=== PATIENT | male | born 1935 | race Caucasian/White ===

== ENCOUNTER 2016-11-14 13:46 | Outpatient (CLI) | payer MEDICARE, BC ==
[2016-11-14 14:50] LABS: Hematocrit 35.8 % (42.0-52.0); Mean Platelet Volume 6.5 fL (7.4-10.4); Red Blood Cell (RBC) Count 3.74 mill/uL (4.70-6.10); White Blood Cell (WBC) Count 5.9 thou/uL (4.8-10.8)
[2016-11-14 14:54] LABS: Bilirubin Negative (Negative); Blood, Urine Negative (Negative); Glucose, Urine (Dipstick) Negative (Negative); Ketone, Urine Negative (Negative); Nitrite Negative (Negative); Protein, Urine (Dipstick) Negative (Neg-Trace); Urobilinogen 0.2 mg/dL (0.2-1.0)
[2016-11-14 14:55] LABS: Bacteria/HPF None Seen HPF (None Seen); Hyaline Casts/LPF 0-3 HYALINE CAST LPF (0-3 Hyaline); Prothrombin Time 13.8 SEC (12.0-14.7); RBC/HPF 0-3 HPF (0-3); Squamous Epithelial None Seen HPF (0-3); WBC/HPF None Seen HPF (0-3)
[2016-11-14 15:12] LABS: Anion Gap 11 mmol/L (10-20); BUN (Urea Nitrogen) 24 mg/dL (8.4-25.7); Calc. Creatinine Clearance 0 mL/min (70-130); Calcium 9.4 mg/dL (7.8-10.44); Carbon Dioxide 24 mmol/L (23-31); Chloride 109 mmol/L (98-107); Estimated GFR-MDRD 58
--- NOTE | 2016-11-16 17:45 | EKG ---
Test Reason : Blood Pressure : / mmHG Vent. Rate : 057 BPM Atrial Rate : 057 BPM P-R Int : 164 ms QRS Dur : 088 ms QT Int : 432 ms P-R-T Axes : -04 -36 -07 degrees QTc Int : 420 ms Sinus bradycardia Left axis deviation Minimal voltage criteria for LVH, may be normal variant Abnormal ECG When compared with ECG of 08-SEP-2008 13:03, No significant change was found Confirmed by SONIA VALDES ([id number]) on 11/16/2016 5:45:27 PM Referred By: ISIDRO Confirmed By:SONIA VALDES
== END 2016-11-14 13:47 | disposition home or self-care (01) ==
LOC: LABBT 13:46
PROVIDERS: ATTEND Orthopaedic Surgery
DX: Z01.818 Encounter for other preprocedural examination (principal); M17.12 Unilateral primary osteoarthritis, left knee
CPT/HCPCS: 80048; 81001; 85027; 85610; 87081; 93005; 93010

== ENCOUNTER 2016-11-19 11:30 | Inpatient (IN) | payer MEDICARE, BC ==
[2016-11-14 13:55] VITALS: BMI 25.7
[2016-11-24] MEDS ORDERED: Fentanyl 100 MCG/2 ML VIAL ONE ×3 (05:54→09:55)
[2016-11-24] MEDS ORDERED: Tranexamic Acid 1,000 MG/100 ML BAG ONE ×2 (05:58→09:31)
[2016-11-24] MEDS ORDERED: Midazolam HCl 2 mg/2 ml Vial ONE (06:13)
[2016-11-24] MEDS ORDERED: Vancomycin HCl 1.5 GM in Sodium Chloride 0.9% 250 ML 300 ML IVPB SCH ×2 (06:15→18:00)
[2016-11-24] MEDS ORDERED: Ropivacaine 0.2% HCl/PF 20 ML ONE (06:31)
[2016-11-24] MEDS ORDERED: Bupivacaine PF 0.5% 30 ML VIAL ONE (06:53)
[2016-11-24] MEDS ORDERED: Bupivacaine 0.25% HCL 30 ML VIAL ONE (06:53)
[2016-11-24] MEDS ORDERED: Promethazine HCl 25 MG/ML VIAL IM PRN ×3 (07:03→09:24)
[2016-11-24] MEDS ORDERED: Ropivacaine 0.2% 550 ML 550 ML NERVE BLCK SCH (07:03)
[2016-11-24] MEDS ORDERED: Ondansetron HCl/PF 4 MG/2 ML Vial IVP PRN ×3 (07:03→09:24)
[2016-11-24] MEDS ORDERED: traMADol HCl 50 MG TAB PO PRN ×3 (07:03→09:24)
[2016-11-24] MEDS ORDERED: Zolpidem Tartrate 5 MG TAB PO PRN ×2 (07:03→09:24)
[2016-11-24] MEDS ORDERED: Ropivacaine HCl/PF 250 ML in Premix Bag 1 BAG NERVE BLCK SCH (07:03)
[2016-11-24] MEDS ORDERED: Fentanyl 100 MCG/2 ML VIAL IV PRN (07:04)
[2016-11-24] MEDS ORDERED: Dexamethasone 20 MG/5 ML VIAL ONE (07:39)
[2016-11-24] MEDS ORDERED: Lidocaine 1% PF 5 ML VIAL ONE (07:39)
[2016-11-24] MEDS ORDERED: Propofol 200 MG/20 ML VIAL ONE (07:39)
[2016-11-24] MEDS ORDERED: ePHEDrine/0.9% NaCl/PF SYRINGE 50 mg/10 ml ONE (07:39)
[2016-11-24] MEDS ORDERED: Ondansetron HCl/PF 4 MG/2 ML Vial ONE (07:39)
[2016-11-24] MEDS ORDERED: Promethazine HCl 25 MG/ML VIAL SLOW IVP PRN (08:03)
[2016-11-24] MEDS ORDERED: diphenhydrAMINE HCl 25 MG CAP PO PRN (09:24)
[2016-11-24] MEDS ORDERED: Acetaminophen 325 MG TAB PO PRN (09:24)
[2016-11-24] MEDS ORDERED: Tranexamic Acid 1,000 MG in Sodium Chloride 0.9% 100 ML IVPB SCH (09:30)
--- NOTE | 2016-11-24 11:18 | OP ---
DESCRIPTION OF THE PROCEDURE: 11/24/2016 PREOPERATIVE DIAGNOSIS: Left knee osteoarthrosis. POSTOPERATIVE DIAGNOSIS: Left knee osteoarthrosis. PROCEDURE PERFORMED: Left total knee replacement using [employer] pinless navigation. SURGEON: Blair Schmitz M.D. CATALOG LIBRARY ASSISTANT: Peter Fink PA-C. BLOOD LOSS: Minimal. COMPLICATIONS: None. ANESTHESIA: The patient had a preoperative block as well as a general anesthetic. DISPOSITION: He did go to the recovery room in stable condition. IMPLANTS: To the left knee is [employer] total knee system, femur size 6 cruciate retaining. Tibial baseplate size 6 universal tibia. We used a 6 x 9 mm CSX3 tibial bearing and an asymmetric 35 x 10 X3 patella. CONDITION: He did go to the recovery room in stable condition. INDICATIONS: An 81-year-old male who has failed nonoperative treatment for knee arthritis and at is time opted to have surgery. PROCEDURE IN DETAIL: After all appropriate consent forms were explained and signed, the patient was taken back to the Operating Room and at this time was given general anesthetic. Once the level of anesthesia was appropriate, a well-padded tourniquet was placed on the left leg and the leg was then prepped and draped in standard surgical fashion. The limb was exsanguinated and tourniquet taken u p to 300 mmHg. Midline incision was made with a 10 blade down through the skin and subcutaneous tis imani. Bovie electrocautery was used to coagulate any brisk venous bleeding. A new blade was used to make a medial parapatellar arthrotomy. Small subperiosteal release was performed medially and exce ss fat pad was removed. The knee was flexed up to gain access to the femur. The femur was navigate d and distal femoral resection was made. Epicondylar access was used to align our sizing jig and is was pinned in place. We sized our femur to be a 6, 4:1 cutting block was applied and pinned. An terior and posterior chamfer cuts were then made. We navigated out our proximal tibia and made our proximal tibial resection. Spreaders were used to remove any posterior osteophytes off the back of the femur as well as remaining meniscal tissue. A long alignment farzaneh was then used to achieve corre ct rotation of our tibial baseplate and a size 6 was chosen. This was pinned in place. We trialed the polyethylene and a 6 x 9 mm CSX3 tibial bearing polyethylene gave us full extension and good sta bility throughout range of motion. Two towel clips and a saw were used to cut our patella. Three l ug nuts were drilled and left patella was trialed which sat nicely in the trochlear groove. We then drilled our femur and punched our tibia. All components were removed. The knee was thoroughly irr igated and dried. Cement was mixed into the cement gun on the back table. Components were then ana yann. The knee was held out in full extension until the cement had dried. All excess bone cement wa s removed. Multiple #2 Vicryl stitches as well as a Quill was used to close our extensor mechanism . 0 Quill followed by a running Monoderm was then used to close the skin. Surgicel glue was then u sed on the skin. Once this had dried, soft tissue dressing was applied to the limb, tourniquet was l et down, and the toes pinked up nicely. The patient was then awakened and taken to the Recovery Lin in stable condition. All counts were correct at the end of the case. The patient did receive pre operative IV antibiotics. The patient was injected with Exparel for postoperative pain relief.
[2016-11-24] MEDS: Ketorolac Tromethamine 30 MG/ML VIAL IVP SCH ×2 (14:11→21:15)
--- NOTE | 2016-11-24 15:05 | PDOC.PN ---
- Subjective Encounter Start Date: 11/24/16 Encounter Start Time: 15:00 Subjective: Consult for general med mgmt s/p L TKA due to severe osteoarthrosis. -: Hx of HTN, HLD. Reviewed all relevant past medical records, current hx and -: radiographs and labs. No new complaints currently. - Objective MAR Reviewed: Yes Vital Signs & Weight: Vital Signs (12 hours) Temp Pulse Resp BP Pulse Ox 11/24/16 10:45 97.8 F 69 18 125/73 94 L Weight Weight 190 lb Additional Labs: Laboratory Tests 11/14/16 11/14/16 14:18 14:18 WBC 5.9 Hgb 12.2 L Hct 35.8 L MCV 95.7 H Plt Count 205 Sodium 140 Potassium 4.2 Chloride 109 H Carbon Dioxide 24 Anion Gap 11 BUN 24 Creatinine 1.20 Estimated GFR (MDRD) 58 Glucose 101 EKG Reviewed by me: Yes (11/14/16 - sinus bradycardia in 50's, LAD, no acute changes) Phys Exam - Physical Examination Constitutional: NAD HEENT: PERRLA, oral pharynx no lesions Neck: no JVD, supple Respiratory: no wheezing, clear to auscultation bilateral Cardiovascular: RRR Gastrointestinal: soft, non-tender, no distention, positive bowel sounds L knee with surgical dressings in place, N/V intact distally + edema Musculoskeletal: pulses present Psychiatric: A&O x 3 Skin: normal turgor, cap refill <2 seconds Dx/Plan (1) HTN (hypertension) Code(s): I10 - ESSENTIAL (PRIMARY) HYPERTENSION Status: Chronic Qualifiers: Hypertension type: essential hypertension Qualified Code(s): I10 - Essential (primary) hypertension Comment: Stable overall resume home Lisinopril and Norvasc, serial BP monitoring , prn Hydralazine and Clonidine (2) HLD (hyperlipidemia) Code(s): E78.5 - HYPERLIPIDEMIA, UNSPECIFIED Status: Chronic Comment: Resume home regimen after 24h (3) Osteoarthrosis Code(s): M19.90 - UNSPECIFIED OSTEOARTHRITIS, UNSPECIFIED SITE Status: Chronic Qualifiers: Osteoarthritis location: knee Laterality: left Comment: s/p L TKA 11/24/16, pain control, ASA 325mg BID - Plan plan discussed w/ family, francis catheter, PT/OT, clinical social worker, incentive spirometry, out of bed/ambulate, DVT proph w/SCDs Continue ASA 325mg BID -: Pain control per protocol -: Continue Amlodipine and Lisinopril -: Mobilization per [facility] protocol -: AM lab: CBC * Thank you for the consult, will continue to follow with primary team
[2016-11-24] MEDS ORDERED: cloNIDine HCl 0.1 MG TAB PO PRN (15:15)
[2016-11-24] MEDS: Sodium Chloride 0.9% 1,000 ML IV SCH ×2 (16:03→21:16)
[2016-11-24] MEDS: HYDROcodone/Acetaminophen 10/325 mg Tablet PO PRN ×2 (16:10→20:09)
[2016-11-24] MEDS: Senokot S 8.6-50 MG TAB PO SCH (20:03)
[2016-11-24] MEDS: rOPINIRole HCl 2 MG TAB PO SCH (20:03)
[2016-11-24] MEDS: Simvastatin 20 MG TAB PO SCH (20:03)
[2016-11-24] MEDS: Aspirin 325 MG TAB PO SCH (20:03)
[2016-11-24] MEDS: Ferrous Gluconate 324 MG TAB PO SCH (20:03)
[2016-11-25] MEDS: Sodium Chloride 0.9% 1,000 ML IV SCH ×2 (06:12→16:03)
[2016-11-25] MEDS: Ketorolac Tromethamine 30 MG/ML VIAL IVP SCH ×3 (06:14→22:07)
[2016-11-25] MEDS: HYDROcodone/Acetaminophen 10/325 mg Tablet PO PRN ×4 (06:16→18:57)
[2016-11-25 06:25] LABS: Hematocrit 31.2 % (42.0-52.0); Mean Platelet Volume 6.4 fL (7.4-10.4); Red Blood Cell (RBC) Count 3.25 mill/uL (4.70-6.10); White Blood Cell (WBC) Count 9.6 thou/uL (4.8-10.8)
[2016-11-25] MEDS: rOPINIRole HCl 2 MG TAB PO SCH ×2 (08:12→20:06)
[2016-11-25] MEDS: Lisinopril 20 MG TAB PO SCH (08:12)
[2016-11-25] MEDS: Senokot S 8.6-50 MG TAB PO SCH ×2 (08:13→20:07)
[2016-11-25] MEDS: Ferrous Gluconate 324 MG TAB PO SCH ×2 (08:13→20:07)
[2016-11-25] MEDS: Aspirin 325 MG TAB PO SCH ×2 (08:14→20:07)
[2016-11-25] MEDS: Multivitamin W/ Minerals 1 TAB PO SCH (08:14)
--- NOTE | 2016-11-25 17:04 | PDOC.PN ---
- Subjective Encounter Start Date: 11/25/16 Encounter Start Time: 16:45 Subjective: f/u s/p L TKA POD #1. Feels ok overall and minimal pain. Some trouble -: sleeping. Good appetite, no SOB or fever. - Objective MAR Reviewed: Yes Vital Signs & Weight: Vital Signs (12 hours) Temp Pulse Resp BP BP Pulse Ox 11/25/16 15:45 97.6 F 64 16 152/74 H 92 L 11/25/16 12:20 98.5 F 64 16 153/78 H 92 L 11/25/16 12:00 95 11/25/16 08:13 94 145/82 H 11/25/16 08:12 145/82 H 11/25/16 08:00 98.5 F 94 18 95 Weight Admit Weight 190 lb Weight 190 lb I&O: 11/24/16 11/25/16 11/26/16 06:59 06:59 06:59 Intake Total 200 Balance 200 Result Diagrams: 11/25/16 05:23 Phys Exam - Physical Examination Constitutional: NAD HEENT: PERRLA Neck: no JVD, supple Respiratory: no wheezing, clear to auscultation bilateral Cardiovascular: RRR Gastrointestinal: soft, non-tender, no distention, positive bowel sounds L knee with SONY wrap surgical dressing and brace in place Musculoskeletal: pulses present, edema present Neurological: normal sensation, moves all 4 limbs Psychiatric: A&O x 3 Skin: normal turgor, cap refill <2 seconds Dx/Plan (1) HTN (hypertension) Code(s): I10 - ESSENTIAL (PRIMARY) HYPERTENSION Status: Chronic Qualifiers: Hypertension type: essential hypertension Qualified Code(s): I10 - Essential (primary) hypertension Comment: Stable overall resume home Lisinopril and Norvasc, serial BP monitoring , prn Hydralazine and Clonidine (2) HLD (hyperlipidemia) Code(s): E78.5 - HYPERLIPIDEMIA, UNSPECIFIED Status: Chronic Comment: Resume home regimen after 24h (3) Osteoarthrosis Code(s): M19.90 - UNSPECIFIED OSTEOARTHRITIS, UNSPECIFIED SITE Status: Chronic Qualifiers: Osteoarthritis location: knee Laterality: left Comment: s/p L TKA 11/24/16, pain control, ASA 325mg BID (4) Status post total knee replacement, left Code(s): Z96.652 - PRESENCE OF LEFT ARTIFICIAL KNEE JOINT Status: Acute Comment: POD #1, pain control, ASA 325mg BID, ROM exercises, PT/OT - Plan plan discussed w/ family, PT/OT, social services analyst, out of bed/ambulate, DVT proph w/SCDs Stable overall -: Continue ASA 325mg BID -: Add Restoril 30mg HS -: Hold Ambien -: Continue Lisinopril and Norvasc * OOB/ambulate with PT
[2016-11-25] MEDS ORDERED: Temazepam 15 MG CAP PO PRN (17:08)
[2016-11-25] MEDS: Simvastatin 20 MG TAB PO SCH (20:07)
[2016-11-26] MEDS: Sodium Chloride 0.9% 1,000 ML IV SCH (00:49)
[2016-11-26] MEDS: HYDROcodone/Acetaminophen 10/325 mg Tablet PO PRN ×2 (03:29→12:37)
[2016-11-26 05:46] LABS: Hematocrit 32.3 % (42.0-52.0); Mean Platelet Volume 6.5 fL (7.4-10.4); Red Blood Cell (RBC) Count 3.36 mill/uL (4.70-6.10); White Blood Cell (WBC) Count 7.7 thou/uL (4.8-10.8)
[2016-11-26] MEDS: Ketorolac Tromethamine 30 MG/ML VIAL IVP SCH (06:33)
[2016-11-26] MEDS: rOPINIRole HCl 2 MG TAB PO SCH (08:01)
[2016-11-26] MEDS: Multivitamin W/ Minerals 1 TAB PO SCH (08:01)
[2016-11-26] MEDS: Senokot S 8.6-50 MG TAB PO SCH (08:01)
[2016-11-26] MEDS: Ferrous Gluconate 324 MG TAB PO SCH (08:02)
[2016-11-26] MEDS: Lisinopril 20 MG TAB PO SCH (08:02)
[2016-11-26] MEDS: Aspirin 325 MG TAB PO SCH (08:02)
--- NOTE | 2016-11-26 10:11 | PDOC.PN ---
- Subjective Encounter Start Date: 11/26/16 Encounter Start Time: 07:40 -: old records requested/rev Patient seen and examined. No new complaints. No overnight events - Objective Resuscitation Status: Resuscitation Status FULL:Full Resuscitation MAR Reviewed: Yes Vital Signs & Weight: Vital Signs (12 hours) Temp Pulse Resp BP BP Pulse Ox 11/26/16 08:02 127/83 11/26/16 08:01 96 127/83 11/26/16 07:35 98.5 F 96 20 127/83 95 11/26/16 04:41 98.4 F 78 16 147/83 H 94 L 11/25/16 23:56 98.1 F 83 17 157/73 H 95 Weight Admit Weight 190 lb Weight 190 lb I&O: 11/25/16 11/26/16 11/27/16 06:59 06:59 06:59 Intake Total 200 Balance 200 Result Diagrams: 11/26/16 05:27 Phys Exam - Physical Examination Constitutional: NAD HEENT: PERRLA, moist MMs, sclera anicteric Neck: no JVD, supple Respiratory: no wheezing, no rales, no rhonchi Cardiovascular: RRR, no significant murmur, no rub Gastrointestinal: soft, non-tender, no distention, positive bowel sounds Musculoskeletal: no edema, pulses present left knee with dressing Neurological: non-focal, normal sensation, moves all 4 limbs Psychiatric: normal affect, A&O x 3 Skin: no rash, normal turgor Dx/Plan (1) Status post total knee replacement, left Code(s): Z96.652 - PRESENCE OF LEFT ARTIFICIAL KNEE JOINT Status: Acute Comment: pain control, ASA 325mg BID, ROM exercises, PT/OT (2) HLD (hyperlipidemia) Code(s): E78.5 - HYPERLIPIDEMIA, UNSPECIFIED Status: Chronic Comment: (3) HTN (hypertension) Code(s): I10 - ESSENTIAL (PRIMARY) HYPERTENSION Status: Chronic Qualifiers: Hypertension type: essential hypertension Qualified Code(s): I10 - Essential (primary) hypertension Comment: Stable overall resume home Lisinopril and Norvasc, serial BP monitoring , prn Hydralazine and Clonidine (4) Osteoarthrosis Code(s): M19.90 - UNSPECIFIED OSTEOARTHRITIS, UNSPECIFIED SITE Status: Chronic Qualifiers: Osteoarthritis location: knee Laterality: left Comment: s/p L TKA 11/24/16, pain control, ASA 325mg BID - Plan cont current plan of care, plan discussed w/ family, PT/OT * continue aspirin for DVT prophyalxis * continue protonix for GI prophylaxis * Nerve block as per anesthesia * pain controlled * discussed with family * medication reviewed as below * symptomatic treatment * Code status- Full code * continue Ferrous sulfate * overall medically stable. * plan for discharge today * will sign off Review of Systems - Review of Systems ENT: negative: Ear Pain, Ear Discharge, Nose Pain, Nose Discharge, Nose Congestion, Mouth Pain, Mouth Swelling, Throat Pain, Throat Swelling, Other Respiratory: negative: Cough, Dry, Shortness of Breath, Hemoptysis, SOB with Excertion, Pleuritic Pain, Sputum, Wheezing Cardiovascular: negative: Chest Pain, Palpitations, Orthopnea, Paroxysmal Noc. Dyspnea, Edema, Light Headedness, Other Gastrointestinal: negative: Nausea, Vomiting, Abdominal Pain, Diarrhea, Constipation, Melena, Hematochezia, Other Genitourinary: negative: Dysuria, Frequency, Incontinence, Hematuria, Retention , Other Musculoskeletal: negative: Neck Pain, Shoulder Pain, Arm Pain, Back Pain, Hand Pain, Leg Pain, Foot Pain, Other - Medications/Allergies Allergies/Adverse Reactions: Allergies Allergy/AdvReac Type Severity Reaction Status Date / Time No Known Allergies Allergy Unverified 11/14/16 13:50 Medications: Current Medications Acetaminophen (Tylenol) 650 mg PO Q4H PRN PRN Reason: FLOOD/ T > 101F; Mild Pain (1-3) Hydrocodone Bitart/Acetaminophen ([place] 10/325) 1 tab PO Q4H PRN PRN Reason: Pain (1-3) Last Admin: 11/25/16 14:17 Dose: 1 tab Hydrocodone Bitart/Acetaminophen ([place] 10/325) 2 tab PO Q4H PRN PRN Reason: PAIN (4-6) Last Admin: 11/26/16 03:29 Dose: 2 tab Amlodipine Besylate (Norvasc) 5 mg PO DAILY [facility] Last Admin: 11/26/16 08:01 Dose: 5 mg Aspirin (Aspirin) 325 mg PO BID [facility] Last Admin: 11/26/16 08:02 Dose: 325 mg Clonidine HCl (Catapres) 0.1 mg PO Q4H PRN PRN Reason: SBP Greater Than 180 Diphenhydramine HCl (Benadryl) 25 mg PO Q6H PRN PRN Reason: Itching Fentanyl (Sublimaze) 50 mcg IV Q1H PRN PRN Reason: BREAKTHROUGH PAIN Last Admin: 11/24/16 16:35 Dose: 50 mcg Ferrous Gluconate (Fergon) 324 mg PO BID [facility] Last Admin: 11/26/16 08:02 Dose: 324 mg Hydralazine HCl (Apresoline) 10 mg SLOW IVP Q4H PRN PRN Reason: SBP Greater Than 170 Ropivacaine 250 ml/ Device 250 mls @ 0 mls/hr NERVE BLCK INF [facility] PRN Reason: As Directed Last Admin: 11/25/16 10:44 Dose: 250 mls Sodium Chloride (Normal Saline 0.9%) 1,000 mls @ 100 mls/hr IV .Q10H [facility] Last Admin: 11/26/16 00:49 Dose: Not Given Iron/Minerals/Multivitamins (Theragran M) 1 tab PO DAILY [facility] Last Admin: 11/26/16 08:01 Dose: 1 tab Ketorolac Tromethamine (Toradol) 15 mg IVP Q8HR [facility] Stop: 11/26/16 14:01 Last Admin: 11/26/16 06:33 Dose: 15 mg Lisinopril (Zestril) 40 mg PO DAILY [facility] Last Admin: 11/26/16 08:02 Dose: 40 mg Ondansetron HCl (Zofran) 4 mg IVP Q6H PRN PRN Reason: Nausea/Vomiting Pantoprazole Sodium (Protonix) 40 mg PO BID [facility] Last Admin: 11/26/16 08:02 Dose: 40 mg Promethazine HCl (Phenergan) 12.5 mg IM Q4H PRN PRN Reason: Nausea Ropinirole HCl (Requip) 2 mg PO DAILY [facility] Last Admin: 11/26/16 08:01 Dose: 2 mg Ropinirole HCl (Requip) 6 mg PO QPM [facility] Last Admin: 11/25/16 20:06 Dose: 6 mg Senna/Docusate Sodium (Senokot S) 2 tab PO BID [facility] Last Admin: 11/26/16 08:01 Dose: 2 tab Simvastatin (Zocor) 20 mg PO HS [facility] Last Admin: 11/25/16 20:07 Dose: 20 mg Sodium Chloride (Flush - Normal Saline) 10 ml IVF Q12HR [facility] Last Admin: 11/25/16 20:07 Dose: 10 ml Sodium Chloride (Flush - Normal Saline) 10 ml IVF PRN PRN PRN Reason: Saline Flush Temazepam (Restoril) 30 mg PO HSPRN PRN PRN Reason: Insomnia Last Admin: 11/25/16 20:09 Dose: 30 mg Tramadol HCl (Ultram) 50 mg PO Q6H PRN PRN Reason: Mild Pain (1-3) Last Admin: 11/24/16 22:30 Dose: 50 mg Tramadol HCl (Ultram) 100 mg PO Q6H PRN PRN Reason: Moderate Pain 4-6 Last Admin: 11/25/16 17:17 Dose: 100 mg
--- NOTE | 2016-11-26 11:19 | DIS ---
DATE OF ADMISSION: 11/24/2016 DATE OF DISCHARGE: 11/26/2016 PRIMARY CARE PHYSICIAN: Erickson Dempsey M.D. DISCHARGE DISPOSITION: Home. PRIMARY DISCHARGE DIAGNOSIS: Status post left total knee replacement. SECONDARY DISCHARGE DIAGNOSES: Hypertension, dyslipidemia, and osteoarthritis. PRIMARY PROCEDURE/OPERATION: Left total knee replacement. RADIOLOGICAL INVESTIGATION: None. SIGNIFICANT LABORATORY DATA: Hemoglobin 11.0. DISCHARGE MEDICATIONS: Aspirin 325 mg p.o. b.i.d., amlodipine 5 mg p.o. daily, Prevacid 30 mg p.o. b.i.d., lisinopril 40 mg p.o. daily, Zocor 20 mg p.o. at bedtime, and ropinirole 2 mg p.o. daily. CONTRAINDICATIONS: None. CODE STATUS: FULL CODE. INPATIENT CONSULTANTS: None. ALLERGIES: No known drug allergies. DISCHARGE PLAN: Post hospital, the patient will follow up with Dr. Schmitz on 1 or 2 weeks as directed . The patient will make appointment with primary care physician. HOSPITAL COURSE: An 81-year-old male who was admitted by Dr. Schmitz for left total knee replacement w hich was done on 11/24/2016. While in hospital, Dr. Schmitz with primary Sound Team was consulted for medical comanagement after surgery at [facility]. The patient's all medical problems remained stable. We resumed the patient's home medication while in hospital. On discharge, the patient is also continued on his home medications. Aspirin is given for DVT prophylaxis. The patient is seen and examined at bedside today. Please see my progress note from today for furth er detail and we will sign off.
[2016-11-26 12:02] VITALS: BP 141/75; TEMP 97.6
== END 2016-11-26 16:51 | disposition home or self-care (01) | DRG 470 ==
LOC: SURG A 11-24 05:29 → SJJU 11-24 10:21
PROVIDERS: ADMIT Orthopaedic Surgery; ATTEND Orthopaedic Surgery
PROC: 0SRD0J9 Replacement of Left Knee Joint with Synthetic Substitute, Cemented, Open Approach (ICD-10-PCS; principal; 2016-11-24)
PROC: 3E0T3BZ Introduction of Anesthetic Agent into Peripheral Nerves and Plexi, Percutaneous Approach (ICD-10-PCS; 2016-11-24)
DX: M17.12 Unilateral primary osteoarthritis, left knee (principal); I10 Essential (primary) hypertension; M70.42 Prepatellar bursitis, left knee; E78.5 Hyperlipidemia, unspecified
CPT/HCPCS: 36415; 85027; 86850; 86900; 86901; A4216; C1713; C1776; G8978-GP-CK; G8979-GP-CI; J1100; J1885; J2001; J2250; J2405; J2704; J2795; J3010; J3370; J7050; S0020

== ENCOUNTER 2017-12-21 13:12 | Outpatient (CLI) | payer MEDICARE, BC ==
--- NOTE | 2017-12-21 14:50 | RAD ---
CHEST PA AND LATERAL: History: 82-year-old male with history of dyspnea. Comparison: 01-13-13 FINDINGS: Heart size is within normal limits. Prominent atherosclerotic and fatty changes of the aorta. No conf luent pneumonia, overt edema, or pleural effusion. IMPRESSION: Extensive atherosclerotic ectatic changes of the aorta. No acute intrathoracic disease. Stable from p rior study. POS: [facility]
== END 2017-12-21 13:13 | disposition home or self-care (01) ==
LOC: RAD 13:12
PROVIDERS: ATTEND Internal Medicine Critical Care Medicine
DX: R06.00 Dyspnea, unspecified (principal); I70.0 Atherosclerosis of aorta
CPT/HCPCS: 71046

== ENCOUNTER 2018-09-07 15:38 | Outpatient (CLI) | payer MEDICARE, BC ==
--- NOTE | 2018-09-07 17:19 | RAD ---
4 VIEWS LUMBAR SPINE WITH WEIGHTBEARING: Date: 09/07/18 HISTORY: Low back pain. History of injuries to lumbar spine many years ago. COMPARISON: 05/03/18. FINDINGS: Again, there are multiple degenerative changes to the lumbar spine with narrowing of the intervertebr al disc spaces at all levels. There is right convex rotoscoliosis of the lumbar spine centered at the level of the L3 vertebral body. There is trace anterolisthesis of L4 on L5. Multilevel facet degener ative changes are present. The vertebral body heights appear to be within normal limits. Vascular maribel cifications are seen in the abdominal aorta. IMPRESSION: 1. 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 2. Trace anterolisthesis of L4 on L5. POS: [facility]
== END 2018-09-07 15:39 | disposition home or self-care (01) ==
LOC: BICRAD 15:38
PROVIDERS: ATTEND Physician Assistant
DX: M54.5 Low back pain (principal); M47.816 Spondylosis without myelopathy or radiculopathy, lumbar region; M41.9 Scoliosis, unspecified
CPT/HCPCS: 72110

== ENCOUNTER 2019-01-17 10:39 | Outpatient (CLI) | payer MEDICARE, BC ==
--- NOTE | 2019-01-17 10:52 | RAD ---
Chest AP view INDICATION: Dyspnea COMPARISON: October 19, 2018 FINDINGS: Lungs:Low lung volumes. No infiltrate demonstrated. Cardiac silhouette:The cardiomediastinal silhouette appears within normal limits. Pulmonary vasculature:Normal Pleural spaces:No pleural effusion or pneumothorax is demonstrated. Upper abdomen:No abnormality seen. Osseous structures: No acute osseous abnormality. Additional findings:Stable left total shoulder replacement IMPRESSION: No acute cardiopulmonary abnormality.
== END 2019-01-17 10:40 | disposition home or self-care (01) ==
LOC: RAD 10:39
PROVIDERS: ATTEND Internal Medicine Critical Care Medicine
DX: R06.00 Dyspnea, unspecified (principal)
CPT/HCPCS: 71046

== ENCOUNTER 2021-01-14 10:56 | Outpatient (CLI) | payer MEDICARE, BC ==
[2021-01-14 13:07] LABS: #Eosinphils 0.1 10x3/uL (0.0-0.5); #Monocytes 0.5 10x3/uL (0.0-1.1); #Neutrophils 7.9 10x3/uL (1.5-8.4); %Basophils 0.4 % (0.0-2.0); %Eosinophils 0.6 % (0.0-6.0); %Lymphocytes 8.4 % (18.0-47.0); %Monocytes 5.4 % (0.0-10.0); %Neutrophils 84.6 % (40.0-75.0); Hemoglobin 10.7 g/dL (13.5-17.5); Mean Corpuscular HGB CONC 30.4 g/dL (32.0-36.0); Mean Corpuscular Hemoglobin 29.2 pg (27.0-33.0); Mean Corpuscular Volume 96.2 fl (81.2-95.1); Mean Platelet Volume 9.2 fl (7.4-10.4); Platelet Count 260 10x3/uL (150-450); RBC Distribution Width 14.6 % (11.5-14.5); Red Blood Cell (RBC) Count 3.66 10x6/uL (4.32-5.72); White Blood Cell (WBC) Count 9.3 10x3/uL (3.5-10.5)
[2021-01-14 13:49] LABS: Anion Gap 13 mmol/L (10-20); BUN (Urea Nitrogen) 32 mg/dL (8.4-25.7); Calc. Creatinine Clearance 0 mL/min (70-130); Calcium 9.1 mg/dL (7.8-10.44); Carbon Dioxide 22 mmol/L (23-31); Chloride 111 mmol/L (98-107); Glucose 124 mg/dL (83-110); Potassium 4.6 mmol/L (3.5-5.1); Sodium 141 mmol/L (136-145)
[2021-01-15 11:01] LABS: SARS-CoV-2 PCR by NAA Not Detected (NotDetected)
== END 2021-01-14 10:57 | disposition home or self-care (01) ==
LOC: LABBT 10:56
PROVIDERS: ATTEND Orthopaedic Surgery
DX: Z01.818 Encounter for other preprocedural examination (principal); M12.811 Other specific arthropathies, not elsewhere classified, right shoulder; Z20.822 Contact with and (suspected) exposure to COVID-19
CPT/HCPCS: 80048; 85025; 93005; U0003; U0005; 93010

== ENCOUNTER 2021-08-28 09:27 | Outpatient (CLI) | payer MEDICARE, BC ==
[2021-08-28 11:14] LABS: #Basophils 0.1 10x3/uL (0.0-0.2); #Eosinphils 0.3 10x3/uL (0.0-0.5); #Monocytes 0.7 10x3/uL (0.0-1.1); #Neutrophils 6.6 10x3/uL (1.5-8.4); %Basophils 0.7 % (0.0-2.0); %Eosinophils 3.3 % (0.0-6.0); %Lymphocytes 13.2 % (18.0-47.0); %Monocytes 7.5 % (0.0-10.0); %Neutrophils 74.7 % (40.0-75.0); Hemoglobin 11.5 g/dL (13.5-17.5); Mean Corpuscular HGB CONC 31.6 g/dL (32.0-36.0); Mean Corpuscular Hemoglobin 30.8 pg (27.0-33.0); Mean Corpuscular Volume 97.6 fl (81.2-95.1); Mean Platelet Volume 9.1 fl (7.4-10.4); Platelet Count 176 10x3/uL (150-450); RBC Distribution Width 14.9 % (11.5-14.5); Red Blood Cell (RBC) Count 3.73 10x6/uL (4.32-5.72); White Blood Cell (WBC) Count 8.8 10x3/uL (3.5-10.5)
[2021-08-28 11:18] LABS: Bilirubin Neg (Negative); Blood, Urine 25 (Negative); Clarity Clear (Clear); Glucose, Urine (Dipstick) Normal (Negative); Ketone, Urine Negative (Negative); Leukocyte Negative (Negative); Nitrite Negative (Negative); Protein, Urine (Dipstick) Negative (Neg-Trace); Urobilinogen Normal mg/dL (Less than 2)
[2021-08-28 11:28] LABS: INR-International Normal Ratio 1.1; Prothrombin Time 11.4 sec (9.5-12.1)
[2021-08-28 11:35] LABS: Anion Gap 12 mmol/L (10-20); BUN (Urea Nitrogen) 30 mg/dL (8.4-25.7); Calc. Creatinine Clearance 0 mL/min (70-130); Calcium 8.9 mg/dL (7.8-10.44); Carbon Dioxide 23 mmol/L (23-31); Chloride 115 mmol/L (98-107); Estimated GFR 61; Glucose 90 mg/dL (83-110); Potassium 4.7 mmol/L (3.5-5.1); Sodium 145 mmol/L (136-145)
== END 2021-08-28 09:28 | disposition home or self-care (01) ==
LOC: LABBT 09:27
PROVIDERS: ATTEND Orthopaedic Surgery
DX: Z01.818 Encounter for other preprocedural examination (principal); M17.11 Unilateral primary osteoarthritis, right knee; Z20.822 Contact with and (suspected) exposure to COVID-19
CPT/HCPCS: 71046; 80048; 81003; 85025; 85610; 86850; 86900; 86901; 87081; 87811; 93005; 93010

== ENCOUNTER 2021-08-28 10:00 | Inpatient (IN) | payer MEDICARE, BC ==
[2021-08-28 11:14] LABS: #Basophils 0.1 10x3/uL (0.0-0.2); #Eosinphils 0.3 10x3/uL (0.0-0.5); #Monocytes 0.7 10x3/uL (0.0-1.1); #Neutrophils 6.6 10x3/uL (1.5-8.4); %Basophils 0.7 % (0.0-2.0); %Eosinophils 3.3 % (0.0-6.0); %Lymphocytes 13.2 % (18.0-47.0); %Monocytes 7.5 % (0.0-10.0); %Neutrophils 74.7 % (40.0-75.0); Hemoglobin 11.5 g/dL (13.5-17.5); Mean Corpuscular HGB CONC 31.6 g/dL (32.0-36.0); Mean Corpuscular Hemoglobin 30.8 pg (27.0-33.0); Mean Corpuscular Volume 97.6 fl (81.2-95.1); Mean Platelet Volume 9.1 fl (7.4-10.4); Platelet Count 176 10x3/uL (150-450); RBC Distribution Width 14.9 % (11.5-14.5); Red Blood Cell (RBC) Count 3.73 10x6/uL (4.32-5.72); White Blood Cell (WBC) Count 8.8 10x3/uL (3.5-10.5)
[2021-08-28 11:18] LABS: Bilirubin Neg (Negative); Blood, Urine 25 (Negative); Clarity Clear (Clear); Glucose, Urine (Dipstick) Normal (Negative); Ketone, Urine Negative (Negative); Leukocyte Negative (Negative); Nitrite Negative (Negative); Protein, Urine (Dipstick) Negative (Neg-Trace); Urobilinogen Normal mg/dL (Less than 2)
[2021-08-28 11:28] LABS: INR-International Normal Ratio 1.1; Prothrombin Time 11.4 sec (9.5-12.1)
[2021-08-28 11:35] LABS: Anion Gap 12 mmol/L (10-20); BUN (Urea Nitrogen) 30 mg/dL (8.4-25.7); Calc. Creatinine Clearance 0 mL/min (70-130); Calcium 8.9 mg/dL (7.8-10.44); Carbon Dioxide 23 mmol/L (23-31); Chloride 115 mmol/L (98-107); Estimated GFR 61; Glucose 90 mg/dL (83-110); Potassium 4.7 mmol/L (3.5-5.1); Sodium 145 mmol/L (136-145)
[2021-08-29 11:33] VITALS: BMI 25.0
[2021-09-02] MEDS ORDERED: Tranexamic Acid 1,000 MG/10 ML VIAL ONE ×2 (07:18→12:09)
[2021-09-02] MEDS ORDERED: Vancomycin (BATCH) 1.5 GRAM/300 ML BAG ONE (07:18)
[2021-09-02] MEDS ORDERED: Sodium Chloride 0.9% 100 ML ONE ×2 (07:18→09:44)
[2021-09-02] MEDS ORDERED: Fentanyl 100 MCG/2 ML VIAL ONE ×3 (07:51→12:46)
[2021-09-02] MEDS ORDERED: Midazolam HCl 2 mg/2 ml Vial ONE (07:51)
[2021-09-02] MEDS ORDERED: Fentanyl 100 MCG/2 ML VIAL SLOW IVP PRN (09:18)
[2021-09-02] MEDS ORDERED: traMADol HCl 50 MG TAB PO PRN ×2 (09:30)
[2021-09-02] MEDS ORDERED: Ropivacaine 0.2% 550 ML 550 ML NERVE BLCK SCH (09:30)
[2021-09-02] MEDS ORDERED: HYDROcodone/Acetaminophen 10/325 mg Tablet PO PRN (09:30)
[2021-09-02] MEDS ORDERED: Promethazine HCl 25 MG/ML VIAL IM PRN ×3 (09:30→11:51)
[2021-09-02] MEDS ORDERED: Bupivacaine PF 0.5% 30 ML VIAL ONE (09:32)
[2021-09-02] MEDS ORDERED: fentaNYL Citrate/PF 100 MCG/2 ML SYRINGE ONE (09:42)
[2021-09-02] MEDS ORDERED: CEFAZOLIN 2 GM VIAL ONE (09:44)
[2021-09-02] MEDS ORDERED: Ondansetron PF 4 MG/2 ML Vial ONE (10:01)
[2021-09-02] MEDS ORDERED: Bupivacaine HCl 0.5%/Epinephrine 1:200,000/PF 30 ml Vial ONE (10:01)
[2021-09-02] MEDS ORDERED: PROPOFOL 200 MG/20 ML VIAL ONE (10:01)
[2021-09-02] MEDS ORDERED: diphenhydrAMINE 25 MG CAP PO PRN (11:34)
[2021-09-02] MEDS ORDERED: Zolpidem Tartrate 5 MG TAB PO PRN (11:34)
[2021-09-02] MEDS ORDERED: Ondansetron PF 4 MG/2 ML Vial IVP PRN (11:34)
[2021-09-02] MEDS ORDERED: Tranexamic Acid 1,000 MG in Sodium Chloride 0.9% 100 ML IVPB SCH (11:45)
[2021-09-02] MEDS ORDERED: Promethazine HCl 25 MG/ML VIAL IVPB PRN (11:51)
[2021-09-02] MEDS ORDERED: Ondansetron HCl/PF 4 MG/2 ML Vial IVP PRN (11:51)
[2021-09-02] MEDS ORDERED: Vancomycin 1.5 GRAM/300 ML BAG 1.5 GM in Premix Bag 1 BAG IVPB SCH (16:00)
[2021-09-02] MEDS: Sodium Chloride 0.9% 1,000 ML IV SCH ×2 (17:48→23:47)
[2021-09-02] MEDS: CEFAZOLIN 2 GM in Sodium Chloride 0.9% 100 ML IVPB SCH (21:05)
[2021-09-02] MEDS: Aspirin 81 mg Enteric Coated Tablet PO SCH (21:06)
[2021-09-02] MEDS: Atorvastatin Calcium 10 MG TAB PO SCH (21:06)
[2021-09-02] MEDS: rOPINIRole HCl 2 MG TAB PO SCH (21:07)
[2021-09-02] MEDS: predniSONE 1 MG TAB PO SCH (21:07)
[2021-09-02] MEDS: HYDROcodone/Acetaminophen 10/325 mg Tablet PO PRN (21:08)
[2021-09-02] MEDS: Senokot S 8.6-50 MG TAB PO SCH (21:08)
[2021-09-02] MEDS: Zolpidem Tartrate 5 MG TAB PO PRN (23:21)
[2021-09-03] MEDS: CEFAZOLIN 2 GM in Sodium Chloride 0.9% 100 ML IVPB SCH (02:56)
[2021-09-03 06:11] LABS: Hemoglobin 8.6 g/dL (14.0-18.0); Mean Corpuscular HGB CONC 32.6 g/dL (32.0-36.0); Mean Corpuscular Hemoglobin 32.5 pg (27.0-31.0); Mean Corpuscular Volume 99.7 fL (78.0-98.0); Mean Platelet Volume 6.8 fL (7.4-10.4); Platelet Count 134 thou/uL (130-400); RBC Distribution Width 14.1 % (11.5-14.5); Red Blood Cell (RBC) Count 2.63 mill/uL (4.70-6.10); White Blood Cell (WBC) Count 9.2 thou/uL (4.8-10.8)
[2021-09-03] MEDS: Albuterol Sulfate 2.5 mg/3 ml Neb NEB SCH (07:10)
[2021-09-03] MEDS: Sodium Chloride 0.9% 1,000 ML IV SCH ×2 (09:19→18:20)
[2021-09-03] MEDS: Ferrous Gluconate 324 MG TAB PO SCH ×2 (09:22→18:16)
[2021-09-03] MEDS: Multivitamin W/ Minerals 1 TAB PO SCH (09:22)
[2021-09-03] MEDS: Senokot S 8.6-50 MG TAB PO SCH ×2 (09:22→21:16)
[2021-09-03] MEDS: predniSONE 5 MG TAB PO SCH (09:22)
[2021-09-03] MEDS: Aspirin 81 mg Enteric Coated Tablet PO SCH ×2 (09:22→21:16)
[2021-09-03] MEDS: rOPINIRole HCl 2 MG TAB PO SCH ×2 (09:23→21:16)
[2021-09-03] MEDS: Acetaminophen 325 MG TAB PO PRN (09:26)
[2021-09-03] MEDS: Lisinopril 20 MG TAB PO SCH (09:27)
[2021-09-03] MEDS: HYDROcodone/Acetaminophen 10/325 mg Tablet PO PRN ×3 (10:58→22:35)
[2021-09-03] MEDS: Atorvastatin Calcium 10 MG TAB PO SCH (21:16)
[2021-09-03] MEDS: Ondansetron PF 4 MG/2 ML Vial IVP PRN (21:16)
[2021-09-03] MEDS: predniSONE 1 MG TAB PO SCH (21:22)
[2021-09-03] MEDS: Zolpidem Tartrate 5 MG TAB PO PRN (22:35)
[2021-09-04 05:35] LABS: Hemoglobin 8.4 g/dL (14.0-18.0); Mean Corpuscular HGB CONC 32.9 g/dL (32.0-36.0); Mean Corpuscular Hemoglobin 32.1 pg (27.0-31.0); Mean Corpuscular Volume 97.5 fL (78.0-98.0); Mean Platelet Volume 6.5 fL (7.4-10.4); Platelet Count 124 thou/uL (130-400); Red Blood Cell (RBC) Count 2.61 mill/uL (4.70-6.10); White Blood Cell (WBC) Count 9.1 thou/uL (4.8-10.8)
[2021-09-04] MEDS: Ondansetron PF 4 MG/2 ML Vial IVP PRN ×2 (06:31→12:02)
[2021-09-04] MEDS: Sodium Chloride 0.9% 1,000 ML IV SCH ×2 (06:31→09:17)
[2021-09-04] MEDS: Albuterol Sulfate 2.5 mg/3 ml Neb NEB SCH (06:35)
[2021-09-04] MEDS ORDERED: Albuterol 200 PUFF (6.7GM INHALER) INH PRN (06:47)
[2021-09-04] MEDS ORDERED: Apixaban 5 MG TAB PO SCH (09:00)
[2021-09-04] MEDS: rOPINIRole HCl 2 MG TAB PO SCH ×2 (09:16→21:52)
[2021-09-04] MEDS ORDERED: Bisacodyl 10 MG SUPP PR SCH (09:30)
[2021-09-04] MEDS: Aspirin 81 mg Enteric Coated Tablet PO SCH ×2 (11:26→21:51)
[2021-09-04] MEDS: Lisinopril 20 MG TAB PO SCH (11:27)
[2021-09-04] MEDS: Ferrous Gluconate 324 MG TAB PO SCH ×2 (11:49→17:03)
[2021-09-04] MEDS: Multivitamin W/ Minerals 1 TAB PO SCH (11:50)
[2021-09-04] MEDS: Senokot S 8.6-50 MG TAB PO SCH ×2 (11:50→21:52)
[2021-09-04] MEDS: predniSONE 5 MG TAB PO SCH (13:46)
[2021-09-04] MEDS: Atorvastatin Calcium 10 MG TAB PO SCH (21:51)
[2021-09-04] MEDS: Acetaminophen 325 MG TAB PO PRN (21:51)
[2021-09-04] MEDS: predniSONE 1 MG TAB PO SCH (21:52)
[2021-09-05] MEDS: Sodium Chloride 0.9% 1,000 ML IV SCH (00:52)
[2021-09-05 05:44] LABS: Hemoglobin 8.1 g/dL (14.0-18.0); Mean Corpuscular Hemoglobin 32.3 pg (27.0-31.0); Mean Corpuscular Volume 98.1 fL (78.0-98.0); Mean Platelet Volume 6.6 fL (7.4-10.4); Platelet Count 136 thou/uL (130-400); RBC Distribution Width 13.8 % (11.5-14.5); Red Blood Cell (RBC) Count 2.51 mill/uL (4.70-6.10); White Blood Cell (WBC) Count 9.3 thou/uL (4.8-10.8)
[2021-09-05] MEDS ORDERED: HYDROcodone/Acetaminophen 5/325 mg Tablet PO PRN (06:02)
[2021-09-05] MEDS: Ferrous Gluconate 324 MG TAB PO SCH (09:30)
[2021-09-05] MEDS: Lisinopril 20 MG TAB PO SCH (09:30)
[2021-09-05] MEDS: Aspirin 81 mg Enteric Coated Tablet PO SCH (09:30)
[2021-09-05] MEDS: Multivitamin W/ Minerals 1 TAB PO SCH (09:31)
[2021-09-05] MEDS: rOPINIRole HCl 2 MG TAB PO SCH (09:31)
[2021-09-05] MEDS: predniSONE 5 MG TAB PO SCH (09:31)
[2021-09-05] MEDS: Senokot S 8.6-50 MG TAB PO SCH (10:07)
[2021-09-05 15:36] VITALS: BP 125/79; TEMP 98.7
== END 2021-09-05 15:50 | DRG 470 ==
LOC: SURG A 09-02 06:44 → SJJU 09-02 13:41
PROVIDERS: ADMIT Orthopaedic Surgery; ATTEND Orthopaedic Surgery
PROC: 0SRC0J9 Replacement of Right Knee Joint with Synthetic Substitute, Cemented, Open Approach (ICD-10-PCS; principal; 2021-09-02)
DX: M17.11 Unilateral primary osteoarthritis, right knee (principal); D62 Acute posthemorrhagic anemia; E78.00 Pure hypercholesterolemia, unspecified; I10 Essential (primary) hypertension; K21.9 Gastro-esophageal reflux disease without esophagitis; G25.81 Restless legs syndrome; I48.91 Unspecified atrial fibrillation; Z85.46 Personal history of malignant neoplasm of prostate
CPT/HCPCS: 36415; 80048; 81003; 85025; 85027; 85610; 86850; 86900; 86901; 87081; 87811; A4306; C1713; C1776; J0690; J2250; J2405; J2704; J2795; J3010; J3370; J3490; J7050; J7512; S0020

== ENCOUNTER 2022-02-20 09:30 | Outpatient (CLI) | payer MEDICARE, BC | END 2022-02-20 09:31 | disposition home or self-care (01) | LOC: RAD 09:30 | PROVIDERS: ATTEND Internal Medicine Critical Care Medicine | DX: R06.00 Dyspnea, unspecified (principal) | CPT/HCPCS: 71046 ==

== ENCOUNTER 2022-10-11 20:55 | Inpatient (IN) | payer OTHER, MEDICARE ==
[~2022-10-11 20:55] MED LIST: Iopamidol-370 76% 500 ML MDV (1 ML CHARGE) ONE
[2022-10-11 21:22] LABS: #Eosinphils 0.1 thou/uL (0.0-0.7); #Monocytes 0.5 thou/uL (0.11-0.59); #Neutrophils 5.8 thou/uL (1.40-6.50); %Basophils 0.5 % (0.0-1.0); %Eosinophils 1.8 % (0.0-10.0); %Lymphocytes 15.9 % (21.0-51.0); %Monocytes 6.9 % (0.0-10.0); %Neutrophils 74.6 % (42.0-75.0); Hematocrit 34.4 % (42.0-52.0); Hemoglobin 11.2 g/dL (14.0-18.0); Mean Corpuscular HGB CONC 32.6 g/dL (32.0-36.0); Mean Corpuscular Hemoglobin 31.6 pg (27.0-31.0); Mean Corpuscular Volume 97.2 fl (78.0-98.0); Mean Platelet Volume 8.6 fL (7.4-10.4); Platelet Count 191 10x3/uL (130-400); RBC Distribution Width 13.6 % (11.5-14.5); Red Blood Cell (RBC) Count 3.54 mill/uL (4.70-6.10); White Blood Cell (WBC) Count 7.8 10x3/uL (4.8-10.8)
[2022-10-11 21:35] LABS: INR-International Normal Ratio 1.2; PTT 26.2 sec (22.9-36.1); Prothrombin Time 15.6 sec (12.0-14.7)
[2022-10-11] MEDS ORDERED: fentaNYL 50 mcg/mL 1 mL Vial ONE (21:41)
[2022-10-11 21:46] LABS: ALT (SGPT) 16 U/L (8-55); AST (SGOT) 19 U/L (5-34); Albumin 4.1 g/dL (3.4-4.8); Alkaline Phosphatase 107 U/L (40-110); Anion Gap 12 mmol/L (10-20); BUN (Urea Nitrogen) 36 mg/dL (8.4-25.7); Bilirubin, Total 0.4 mg/dL (0.2-1.2); Calc. Creatinine Clearance 0 mL/min (70-130); Calcium 9.6 mg/dL (7.8-10.44); Carbon Dioxide 18 mmol/L (23-31); Chloride 118 mmol/L (98-107); Estimated GFR 49; Globulin 2.6 g/dL (2.4-3.5); Glucose 105 mg/dL (83-110); Lipase 25 U/L (8-78); Potassium 4.3 mmol/L (3.5-5.1); Protein, Total 6.7 g/dL (5.8-8.1); Sodium 144 mmol/L (136-145)
[2022-10-11] MEDS ORDERED: Morphine 4 MG/ML VIAL ONE (22:36)
[2022-10-12 01:09] LABS: Bacteria/HPF None Seen HPF (None Seen); Bilirubin Negative (Negative); Blood, Urine Negative (Negative); Clarity Clear (Clear); Glucose, Urine (Dipstick) Normal (Negative); Ketone, Urine Negative (Negative); Leukocyte Negative Leu/uL (Negative); Nitrite Negative (Negative); Protein, Urine (Dipstick) Negative (Neg-Trace); RBC/HPF 0-3 HPF (0-3); Specific Gravity, Urine 1.046 (1.002-1.036); Squamous Epithelial None Seen HPF (0-3); Urobilinogen Normal mg/dL (Less than 2); WBC/HPF 0-3 HPF (0-3)
[2022-10-12 01:18] LABS: Urine Culture Reflex Yes Yes
[2022-10-12] MEDS ORDERED: Morphine 4 MG/ML VIAL SLOW IVP PRN (02:50)
[2022-10-12] MEDS ORDERED: Ondansetron ODT 4 MG TAB SL PRN (03:00)
[2022-10-12] MEDS ORDERED: Ondansetron PF 4 MG/2 ML Vial IVP PRN (03:00)
[2022-10-12 03:01] VITALS: BMI 24.9
[2022-10-12] MEDS ORDERED: Ipratropium/Albuterol 3 ML NEB NEB PRN (07:48)
[2022-10-12] MEDS ORDERED: Acetaminophen 325 MG TAB PO SCH (08:00)
[2022-10-12] MEDS ORDERED: Sodium Chloride 0.9% 1,000 ML IV SCH (08:00)
[2022-10-12] MEDS: Acetaminophen 325 MG TAB PO SCH ×3 (09:31→20:15)
[2022-10-12] MEDS: dilTIAZem CD 180 MG CAP PO SCH (09:38)
[2022-10-12] MEDS: rOPINIRole HCl 2 MG TAB PO SCH (09:39)
[2022-10-12] MEDS: Fluticasone Propionate Nasal Spray 16 gm Bottle NASAL SCH (09:39)
[2022-10-12] MEDS: Acetaminophen/Codeine 30-300mg Tablet PO SCH ×3 (09:44→20:15)
[2022-10-12] MEDS: Famotidine/PF 20 mg/2ml Vial SLOW IVP SCH (09:45)
[2022-10-12] MEDS: Atorvastatin Calcium 10 MG TAB PO SCH (20:16)
[2022-10-12] MEDS: predniSONE 1 MG TAB PO SCH (21:21)
[2022-10-13] MEDS: Acetaminophen/Codeine 30-300mg Tablet PO SCH ×5 (03:59→22:23)
[2022-10-13] MEDS: Acetaminophen 325 MG TAB PO SCH ×5 (04:00→22:22)
[2022-10-13 05:28] LABS: #Basophils 0.1 thou/uL (0.0-0.2); #Eosinphils 0.2 thou/uL (0.0-0.7); #Monocytes 1.1 thou/uL (0.11-0.59); #Neutrophils 11.7 thou/uL (1.40-6.50); %Basophils 0.4 % (0.0-1.0); %Eosinophils 1.6 % (0.0-10.0); %Lymphocytes 10.5 % (21.0-51.0); %Monocytes 7.3 % (0.0-10.0); %Neutrophils 79.9 % (42.0-75.0); Hematocrit 26.1 % (42.0-52.0); Hemoglobin 8.3 g/dL (14.0-18.0); Mean Corpuscular HGB CONC 31.8 g/dL (32.0-36.0); Mean Corpuscular Hemoglobin 31.4 pg (27.0-31.0); Mean Corpuscular Volume 98.9 fl (78.0-98.0); Mean Platelet Volume 9.1 fL (7.4-10.4); Platelet Count 142 10x3/uL (130-400); RBC Distribution Width 13.8 % (11.5-14.5); Red Blood Cell (RBC) Count 2.64 mill/uL (4.70-6.10); White Blood Cell (WBC) Count 14.6 10x3/uL (4.8-10.8)
[2022-10-13 05:59] LABS: Anion Gap 13 mmol/L (10-20); BUN (Urea Nitrogen) 42 mg/dL (8.4-25.7); Calc. Creatinine Clearance 33 mL/min (70-130); Calcium 8.5 mg/dL (7.8-10.44); Carbon Dioxide 18 mmol/L (23-31); Chloride 108 mmol/L (98-107); Estimated GFR 37; Glucose 113 mg/dL (83-110); Magnesium 2.1 mg/dL (1.6-2.6); Potassium 4.3 mmol/L (3.5-5.1); Sodium 135 mmol/L (136-145)
[2022-10-13] MEDS ORDERED: CEFAZOLIN 2 GM in Sodium Chloride 0.9% 100 ML IVPB SCH (06:00)
[2022-10-13] MEDS ORDERED: fentaNYL PF 100 MCG/2 ML SYRINGE ONE (07:45)
[2022-10-13] MEDS ORDERED: CEFAZOLIN 2 GM VIAL ONE (08:17)
[2022-10-13] MEDS ORDERED: Sodium Chloride 0.9% 100 ML ONE (08:17)
[2022-10-13] MEDS ORDERED: PHENYLEPHRINE-NS 100 MCG/ML 10 ML SYRINGE ONE (08:36)
[2022-10-13] MEDS ORDERED: PROPOFOL 200 MG/20 ML VIAL ONE (08:36)
[2022-10-13] MEDS ORDERED: Ondansetron PF 4 MG/2 ML Vial ONE (08:36)
[2022-10-13] MEDS ORDERED: HYDROmorphone 2 MG/ML VIAL SLOW IVP PRN (09:51)
[2022-10-13] MEDS ORDERED: Ondansetron HCl/PF 4 MG/2 ML Vial IVP PRN (09:51)
[2022-10-13] MEDS ORDERED: Promethazine HCl 25 MG/ML VIAL IM PRN (09:51)
[2022-10-13] MEDS ORDERED: fentaNYL 50 mcg/mL 1 mL Vial ONE (09:57)
[2022-10-13] MEDS: Fluticasone Propionate Nasal Spray 16 gm Bottle NASAL SCH (10:00)
[2022-10-13] MEDS: rOPINIRole HCl 2 MG TAB PO SCH (10:00)
[2022-10-13] MEDS: Famotidine/PF 20 mg/2ml Vial SLOW IVP SCH (10:00)
[2022-10-13] MEDS: dilTIAZem CD 180 MG CAP PO SCH (10:00)
[2022-10-13] MEDS: Morphine 2 MG/ML VIAL SLOW IVP PRN ×2 (11:27→21:04)
[2022-10-13] MEDS: CEFAZOLIN 2 GM in Sodium Chloride 0.9% 100 ML IVPB SCH (16:20)
[2022-10-13] MEDS: predniSONE 1 MG TAB PO SCH (21:01)
[2022-10-13] MEDS: Atorvastatin Calcium 10 MG TAB PO SCH (21:01)
[2022-10-13] MEDS: Tamsulosin HCl 0.4 MG CAP PO SCH (21:01)
[2022-10-14] MEDS: CEFAZOLIN 2 GM in Sodium Chloride 0.9% 100 ML IVPB SCH (01:34)
[2022-10-14] MEDS: Morphine 2 MG/ML VIAL SLOW IVP PRN (05:36)
[2022-10-14] MEDS: Acetaminophen/Codeine 30-300mg Tablet PO SCH ×4 (05:39→23:09)
[2022-10-14] MEDS: Acetaminophen 325 MG TAB PO SCH ×4 (05:40→23:09)
[2022-10-14 06:39] LABS: #Eosinphils 0.4 thou/uL (0.0-0.7); #Monocytes 0.7 thou/uL (0.11-0.59); #Neutrophils 8.6 thou/uL (1.40-6.50); %Basophils 0.3 % (0.0-1.0); %Eosinophils 3.3 % (0.0-10.0); %Lymphocytes 8.7 % (21.0-51.0); %Monocytes 6.4 % (0.0-10.0); %Neutrophils 80.7 % (42.0-75.0); Hematocrit 26.9 % (42.0-52.0); Mean Corpuscular HGB CONC 33.5 g/dL (32.0-36.0); Mean Corpuscular Hemoglobin 32.4 pg (27.0-31.0); Mean Corpuscular Volume 96.8 fl (78.0-98.0); Mean Platelet Volume 9.4 fL (7.4-10.4); Platelet Count 112 10x3/uL (130-400); RBC Distribution Width 14.6 % (11.5-14.5); Red Blood Cell (RBC) Count 2.78 mill/uL (4.70-6.10); White Blood Cell (WBC) Count 10.6 10x3/uL (4.8-10.8)
[2022-10-14 07:22] LABS: Anion Gap 11 mmol/L (10-20); BUN (Urea Nitrogen) 36 mg/dL (8.4-25.7); Calc. Creatinine Clearance 35 mL/min (70-130); Carbon Dioxide 18 mmol/L (23-31); Chloride 109 mmol/L (98-107); Estimated GFR 39; Glucose 123 mg/dL (83-110); Potassium 4.4 mmol/L (3.5-5.1); Sodium 134 mmol/L (136-145)
[2022-10-14] MEDS ORDERED: Cyclobenzaprine 10 MG TAB PO PRN (09:07)
[2022-10-14] MEDS: rOPINIRole HCl 2 MG TAB PO SCH (10:10)
[2022-10-14] MEDS: Apixaban 2.5 MG TAB PO SCH ×2 (10:10→20:09)
[2022-10-14] MEDS: Fluticasone Propionate Nasal Spray 16 gm Bottle NASAL SCH (10:11)
[2022-10-14] MEDS: dilTIAZem CD 180 MG CAP PO SCH (10:11)
[2022-10-14] MEDS: Senokot 8.6 MG TAB PO SCH (20:09)
[2022-10-14] MEDS: Atorvastatin Calcium 10 MG TAB PO SCH (20:09)
[2022-10-14] MEDS: predniSONE 1 MG TAB PO SCH (20:09)
[2022-10-14] MEDS: Tamsulosin HCl 0.4 MG CAP PO SCH (20:09)
[2022-10-15] MEDS: Acetaminophen 325 MG TAB PO SCH ×4 (06:35→23:15)
[2022-10-15] MEDS: Acetaminophen/Codeine 30-300mg Tablet PO SCH ×4 (06:35→23:15)
[2022-10-15] MEDS: Apixaban 2.5 MG TAB PO SCH ×2 (09:45→19:07)
[2022-10-15] MEDS: dilTIAZem CD 180 MG CAP PO SCH (09:45)
[2022-10-15] MEDS: rOPINIRole HCl 2 MG TAB PO SCH (09:45)
[2022-10-15] MEDS: Senokot 8.6 MG TAB PO SCH ×2 (09:45→19:07)
[2022-10-15] MEDS: Polyethylene Glycol 3350 17 GM Packet PO SCH (09:45)
[2022-10-15] MEDS: Fluticasone Propionate Nasal Spray 16 gm Bottle NASAL SCH (10:09)
[2022-10-15] MEDS: predniSONE 1 MG TAB PO SCH (19:07)
[2022-10-15] MEDS: Atorvastatin Calcium 10 MG TAB PO SCH (19:07)
[2022-10-15] MEDS: Tamsulosin HCl 0.4 MG CAP PO SCH (19:07)
[2022-10-16] MEDS ORDERED: Senokot 8.6 MG TAB PO SCH (00:45)
[2022-10-16] MEDS: Acetaminophen/Codeine 30-300mg Tablet PO SCH ×2 (04:04→10:03)
[2022-10-16] MEDS: Acetaminophen 325 MG TAB PO SCH ×2 (04:04→10:04)
[2022-10-16 05:40] LABS: #Eosinphils 0.2 thou/uL (0.0-0.7); #Monocytes 0.6 thou/uL (0.11-0.59)
[2022-10-16 05:42] LABS: #Neutrophils 5.7 thou/uL (1.40-6.50); %Basophils 0.1 % (0.0-1.0); %Lymphocytes 10.4 % (21.0-51.0); %Monocytes 7.9 % (0.0-10.0); %Neutrophils 78.3 % (42.0-75.0); Hematocrit 23.2 % (42.0-52.0); Hemoglobin 7.8 g/dL (14.0-18.0); Mean Corpuscular HGB CONC 33.6 g/dL (32.0-36.0); Mean Corpuscular Volume 95.1 fl (78.0-98.0); Mean Platelet Volume 9.2 fL (7.4-10.4); Platelet Count 134 10x3/uL (130-400); Red Blood Cell (RBC) Count 2.44 mill/uL (4.70-6.10); White Blood Cell (WBC) Count 7.3 10x3/uL (4.8-10.8)
[2022-10-16 06:05] LABS: ALT (SGPT) 8 U/L (8-55); AST (SGOT) 24 U/L (5-34); Albumin 2.8 g/dL (3.4-4.8); Alkaline Phosphatase 84 U/L (40-110); Anion Gap 10 mmol/L (10-20); BUN (Urea Nitrogen) 35 mg/dL (8.4-25.7); Bilirubin, Total 0.6 mg/dL (0.2-1.2); Calc. Creatinine Clearance 48 mL/min (70-130); Calcium 8.6 mg/dL (7.8-10.44); Carbon Dioxide 21 mmol/L (23-31); Chloride 105 mmol/L (98-107); Estimated GFR 57; Globulin 2.3 g/dL (2.4-3.5); Glucose 105 mg/dL (83-110); Potassium 4.5 mmol/L (3.5-5.1); Protein, Total 5.1 g/dL (5.8-8.1); Sodium 131 mmol/L (136-145)
[2022-10-16 07:58] VITALS: TEMP 98.4
[2022-10-16] MEDS: Fluticasone Propionate Nasal Spray 16 gm Bottle NASAL SCH (09:26)
[2022-10-16] MEDS: dilTIAZem CD 180 MG CAP PO SCH (09:57)
[2022-10-16] MEDS: rOPINIRole HCl 2 MG TAB PO SCH (09:57)
[2022-10-16] MEDS: Apixaban 2.5 MG TAB PO SCH (09:58)
[2022-10-16] MEDS: Polyethylene Glycol 3350 17 GM Packet PO SCH (10:01)
[2022-10-16 11:54] VITALS: BP 148/81
[2022-10-16] MEDS ORDERED: Cyclobenzaprine 10 MG TAB PO PRN (12:24)
[2022-10-16 12:29] LABS: #Eosinphils 0.3 thou/uL (0.0-0.7); #Monocytes 0.6 thou/uL (0.11-0.59); #Neutrophils 5.8 thou/uL (1.40-6.50); %Basophils 0.3 % (0.0-1.0); %Eosinophils 3.5 % (0.0-10.0); %Lymphocytes 8.8 % (21.0-51.0); %Monocytes 8.6 % (0.0-10.0); %Neutrophils 78.5 % (42.0-75.0); Hematocrit 23.9 % (42.0-52.0); Hemoglobin 7.8 g/dL (14.0-18.0); Mean Corpuscular HGB CONC 32.6 g/dL (32.0-36.0); Mean Corpuscular Hemoglobin 31.6 pg (27.0-31.0); Mean Corpuscular Volume 96.8 fl (78.0-98.0); Platelet Count 124 10x3/uL (130-400); RBC Distribution Width 14.2 % (11.5-14.5); Red Blood Cell (RBC) Count 2.47 mill/uL (4.70-6.10); White Blood Cell (WBC) Count 7.4 10x3/uL (4.8-10.8)
[2022-10-16] MEDS ORDERED: Sodium Chloride 1 GM TAB PO SCH (13:00)
[2022-10-16 14:10] LABS: ALT (SGPT) 8 U/L (8-55); AST (SGOT) 26 U/L (5-34); Alkaline Phosphatase 85 U/L (40-110); Anion Gap 7 mmol/L (10-20); BUN (Urea Nitrogen) 34 mg/dL (8.4-25.7); Bilirubin, Total 0.6 mg/dL (0.2-1.2); Calc. Creatinine Clearance 48 mL/min (70-130); Calcium 8.8 mg/dL (7.8-10.44); Carbon Dioxide 24 mmol/L (23-31); Chloride 103 mmol/L (98-107); Estimated GFR 57; Globulin 2.4 g/dL (2.4-3.5); Glucose 131 mg/dL (83-110); Magnesium 2.1 mg/dL (1.6-2.6); Phosphorus 2.7 mg/dL (2.3-4.7); Potassium 4.3 mmol/L (3.5-5.1); Protein, Total 5.4 g/dL (5.8-8.1); Sodium 130 mmol/L (136-145)
[2022-10-18] MEDS ORDERED: Methotrexate Sodium 2.5 MG TAB PO SCH (09:00)
== END 2022-10-16 15:49 | DRG 481 ==
LOC: ERS 20:55 → 2NO 10-12 01:09 → SURG A 10-12 11:54
PROVIDERS: ADMIT Specialist; ATTEND Specialist
PROC: 0QS606Z Reposition Right Upper Femur with Intramedullary Internal Fixation Device, Open Approach (ICD-10-PCS; principal; 2022-10-13)
PROC: 30233N1 Transfusion of Nonautologous Red Blood Cells into Peripheral Vein, Percutaneous Approach (ICD-10-PCS; 2022-10-13)
DX: S72.141A Displaced intertrochanteric fracture of right femur, initial encounter for closed fracture (principal); D62 Acute posthemorrhagic anemia; S82.001A Unspecified fracture of right patella, initial encounter for closed fracture; N17.9 Acute kidney failure, unspecified; E78.00 Pure hypercholesterolemia, unspecified; Z96.653 Presence of artificial knee joint, bilateral; S09.90XA Unspecified injury of head, initial encounter; W11.XXXA Fall on and from ladder, initial encounter; I48.91 Unspecified atrial fibrillation; N18.9 Chronic kidney disease, unspecified; I12.9 Hypertensive chronic kidney disease with stage 1 through stage 4 chronic kidney disease, or unspecified chronic kidney disease; K59.00 Constipation, unspecified; Z85.46 Personal history of malignant neoplasm of prostate; Z98.890 Other specified postprocedural states; Y92.89 Other specified places as the place of occurrence of the external cause; Z79.01 Long term (current) use of anticoagulants
CPT/HCPCS: 36415; 36430; 70450; 71045; 71260; 72125; 74177; 80048; 80053; 81001; 83690; 83735; 84100; 85025; 85610; 85730; 86850; 86900; 86901; 93005; 96374; 96375; C1713; J2270; J2272; J2405; J2704; J3010; J3490; J7050; J7512; P9016; Q9967; S0028

== ENCOUNTER 2022-11-26 11:10 | Outpatient (CLI) | payer MEDICARE | END 2022-11-26 11:11 | disposition home or self-care (01) | LOC: BICMAMMO 11:10 | PROVIDERS: ATTEND Internal Medicine Rheumatology | DX: M81.0 Age-related osteoporosis without current pathological fracture (principal) | CPT/HCPCS: 77080 ==

== ENCOUNTER 2023-04-24 12:22 | Outpatient (CLI) | payer MEDICARE | END 2023-04-24 12:23 | disposition home or self-care (01) | LOC: ULT 12:22 | PROVIDERS: ATTEND Nurse Practitioner Family | DX: M79.672 Pain in left foot (principal); M79.89 Other specified soft tissue disorders ==

== ENCOUNTER 2023-11-19 09:30 | Outpatient (CLI) | payer MEDICARE | END 2023-11-19 09:31 | disposition home or self-care (01) | LOC: ULT 09:30 | PROVIDERS: ATTEND Internal Medicine Nephrology | DX: I12.9 Hypertensive chronic kidney disease with stage 1 through stage 4 chronic kidney disease, or unspecified chronic kidney disease (principal); N18.9 Chronic kidney disease, unspecified | CPT/HCPCS: 76770; 93975 ==

== ENCOUNTER 2024-09-29 11:58 | Outpatient (CLI) | payer MEDICARE ==
[2024-09-29 12:55] LABS: #Basophils 0.07 10x3/uL (0.0-0.2); #Eosinophils 0.48 10x3/uL (0.0-0.7); #Monocytes 0.62 10x3/uL (0.11-0.59); #Neutrophils 5.18 10x3/uL (1.40-6.50); %Basophils 0.9 % (0.0-1.0); %Eosinophils 6.1 % (0.0-10.0); %Lymphocytes 19.0 % (21.0-51.0); %Monocytes 7.9 % (0.0-10.0); %Neutrophils 65.8 % (42.0-75.0); Hematocrit 32.6 % (42.0-52.0); Hemoglobin 10.6 g/dL (14.0-18.0); Mean Corpuscular Hemoglobin 33.3 pg (27.0-31.0); Mean Corpuscular Volume 102.5 fL (78.0-98.0); Platelet Count 191 10x3/uL (130-400); Red Blood Cell (RBC) Count 3.18 mill/uL (4.70-6.10); White Blood Cell (WBC) Count 7.86 10x3/uL (4.8-10.8)
[2024-09-29 13:08] LABS: INR-International Normal Ratio 1.4; Prothrombin Time 17.1 sec (12.0-14.7)
[2024-09-29 13:27] LABS: Anion Gap 11 mmol/L (10-20); BUN (Urea Nitrogen) 34 mg/dL (8.4-25.7); Calc. Creatinine Clearance 0 mL/min (70-130); Calcium 8.8 mg/dL (7.8-10.44); Carbon Dioxide 23 mmol/L (23-31); Chloride 108 mmol/L (98-107); Glucose 104 mg/dL (83-110); Potassium 3.9 mmol/L (3.5-5.1); Sodium 138 mmol/L (136-145)
== END 2024-09-29 11:59 | disposition home or self-care (01) ==
LOC: LABBT 11:58
PROVIDERS: ATTEND Orthopaedic Surgery
DX: Z01.812 Encounter for preprocedural laboratory examination (principal); M12.811 Other specific arthropathies, not elsewhere classified, right shoulder
CPT/HCPCS: 80048; 85025; 85610; 87081

== ENCOUNTER 2024-10-06 07:08 | Observation (INO) | payer MEDICARE ==
[2024-09-29 12:17] VITALS: BMI 23.0
[2024-10-06] MEDS ORDERED: Tranexamic Acid 1,000 MG/10 ML VIAL ONE (07:33)
[2024-10-06] MEDS ORDERED: Vancomycin 1 GM/200 ML (PREMIX FOIL) BAG ONE (07:33)
[2024-10-06] MEDS ORDERED: Ropivacaine 0.5% HCl/PF (150 MG/30 ML VIAL) ONE (07:36)
[2024-10-06] MEDS ORDERED: Ropivacaine 0.2% HCl/PF 20 ML ONE (07:36)
[2024-10-06] MEDS ORDERED: Lidocaine 1% (PF) 30 ML VIAL ONE (07:36)
[2024-10-06] MEDS ORDERED: CEFAZOLIN 2 GM VIAL ONE (07:42)
[2024-10-06] MEDS ORDERED: fentaNYL PF 100 MCG/2 ML SYRINGE ONE (08:11)
[2024-10-06] MEDS ORDERED: Rocuronium Bromide 10 MG/ML (10ML VIAL) ONE (08:11)
[2024-10-06] MEDS ORDERED: SUGAMMADEX SODIUM 200 MG/2 ML VIAL ONE (08:11)
[2024-10-06] MEDS ORDERED: Ondansetron PF 4 MG/2 ML Vial ONE (08:11)
[2024-10-06] MEDS ORDERED: PROPOFOL 20 ML ONE (08:11)
[2024-10-06] MEDS ORDERED: Lidocaine 1% PF 5 ML VIAL ONE (08:11)
[2024-10-06] MEDS ORDERED: HYDROcodone/Acetaminophen 10/325 mg Tablet PO PRN ×3 (08:30→12:41)
[2024-10-06] MEDS ORDERED: Ropivacaine 0.2% 550 ML 550 ML NERVE BLCK SCH (08:30)
[2024-10-06] MEDS ORDERED: Ondansetron PF 4 MG/2 ML Vial IVP PRN ×2 (08:30→12:41)
[2024-10-06] MEDS ORDERED: Hydrocortisone Sod Succ/PF 100 mg/2 ml Vial ONE (08:57)
[2024-10-06] MEDS ORDERED: Non-Formulary Item 1 EACH (Loratadine [Claritin] 10 MG Capsule) PO SCH (12:41)
[2024-10-06] MEDS ORDERED: Acetaminophen 325 MG TAB PO PRN (12:41)
[2024-10-06] MEDS ORDERED: Non-Formulary Item 1 EACH (Hydrochlorothiazide [Hydrochlorothiazide] 12.5 MG Tablet) PO SCH (12:41)
[2024-10-06] MEDS ORDERED: Milk Of Magnesia 30 ML UDCUP PO PRN (12:41)
[2024-10-06] MEDS ORDERED: Bisacodyl 10 MG SUPP PR PRN (12:41)
[2024-10-06] MEDS ORDERED: Non-Formulary Item 1 EACH (Lansoprazole [Prevacid] 30 MG Capsule.Dr) PO SCH (12:41)
[2024-10-06] MEDS: Allopurinol 100 MG TAB PO SCH (12:55)
[2024-10-06] MEDS: Famotidine 20 MG TAB PO SCH (12:56)
[2024-10-06] MEDS: Folic Acid 1 MG TAB PO SCH (12:56)
[2024-10-06] MEDS: Pantoprazole 40 MG DR.TAB PO SCH (12:56)
[2024-10-06] MEDS ORDERED: Simvastatin 20 MG TAB PO SCH (21:00)
[2024-10-06] MEDS: HYDROcodone/Acetaminophen 10/325 mg Tablet PO PRN (21:33)
[2024-10-07 08:26] VITALS: BP 108/67; TEMP 98
[2024-10-07] MEDS: Famotidine 20 MG TAB PO SCH (09:42)
[2024-10-07] MEDS: Apixaban 5 MG TAB PO SCH (09:42)
== END 2024-10-07 12:35 | disposition home or self-care (01) ==
LOC: SDC 07:08 → SURG A 12:35 → SDC 12:41 → SURG A 12:41
PROVIDERS: ADMIT Orthopaedic Surgery; ATTEND Orthopaedic Surgery
PROC: 0RRJ0JZ Replacement of Right Shoulder Joint with Synthetic Substitute, Open Approach (ICD-10-PCS; principal; 2024-10-06)
PROC: 0LS30ZZ Reposition Right Upper Arm Tendon, Open Approach (ICD-10-PCS; 2024-10-06)
PROC: 3E0T3BZ Introduction of Anesthetic Agent into Peripheral Nerves and Plexi, Percutaneous Approach (ICD-10-PCS; 2024-10-06)
DX: M12.011 Chronic postrheumatic arthropathy [Jaccoud], right shoulder (principal); I10 Essential (primary) hypertension; E78.5 Hyperlipidemia, unspecified; M10.9 Gout, unspecified; K21.9 Gastro-esophageal reflux disease without esophagitis; Z79.899 Other long term (current) drug therapy
CPT/HCPCS: 23430; 23472; 64416; 97110 ×2; 97116 ×2; 97530; 97535; A4306; C1713 ×3; C1776 ×5; J0169; J1720; J2371; J2405; J2704; J2795 ×3; J3010; J3372; J7030; J1100

== ENCOUNTER 2024-12-21 09:53 | Inpatient (IN) | payer MEDICARE ==
[2024-12-21 10:29] LABS: #Basophils 0.04 10x3/uL (0.0-0.2); #Eosinophils 0.44 10x3/uL (0.0-0.7); #Monocytes 0.49 10x3/uL (0.11-0.59); #Neutrophils 3.97 10x3/uL (1.40-6.50); %Basophils 0.7 % (0.0-1.0); %Eosinophils 7.3 % (0.0-10.0); %Lymphocytes 17.5 % (21.0-51.0); %Monocytes 8.2 % (0.0-10.0); %Neutrophils 66.1 % (42.0-75.0); Hematocrit 30.7 % (42.0-52.0); Hemoglobin 9.9 g/dL (14.0-18.0); Mean Corpuscular Hemoglobin 30.8 pg (27.0-31.0); Mean Corpuscular Volume 95.6 fL (78.0-98.0); Platelet Count 177 10x3/uL (130-400); Red Blood Cell (RBC) Count 3.21 mill/uL (4.70-6.10); White Blood Cell (WBC) Count 6.00 10x3/uL (4.8-10.8)
[2024-12-21] MEDS ORDERED: Iopamidol-370 76% 500 ML MDV (1 ML CHARGE) ONE (10:39)
[2024-12-21] MEDS ORDERED: Ondansetron PF 4 MG/2 ML Vial ONE (10:55)
[2024-12-21] MEDS ORDERED: Pantoprazole 40 MG VIAL ONE (10:55)
[2024-12-21 11:01] LABS: ALT (SGPT) 17 U/L (Less than 45); AST (SGOT) 26 U/L (11-34); Albumin 3.5 g/dL (3.1-4.5); Alkaline Phosphatase 71 U/L (40-110); Anion Gap 12 mmol/L (10-20); BUN (Urea Nitrogen) 20 mg/dL (8.4-25.7); Bilirubin, Total 0.4 mg/dL (0.3-1.2); Calc. Creatinine Clearance 0 mL/min (70-130); Calcium 9.0 mg/dL (7.8-10.44); Carbon Dioxide 22 mmol/L (23-31); Chloride 106 mmol/L (98-107); Globulin 2.6 g/dL (2.4-3.5); Glucose 102 mg/dL (83-110); Potassium 3.9 mmol/L (3.5-5.1); Sodium 136 mmol/L (136-145)
[2024-12-21 14:38] LABS: Bacteria/HPF None Seen HPF (None Seen); CAUTI Indications for Culture Pelvic or flank pain; Glucose, Urine (Dipstick) Normal (Negative); Leukocyte Negative Leu/uL (Negative); Protein, Urine (Dipstick) Negative (Neg-Trace); RBC/HPF None Seen HPF (0-3); Specific Gravity, Urine 1.012 (1.002-1.036); WBC/HPF None Seen HPF (0-3)
[2024-12-21 14:40] LABS: Urine Culture Reflex No No
[2024-12-21] MEDS ORDERED: hydrALAZINE 20 MG/ML VIAL SLOW IVP PRN (16:02)
[2024-12-21] MEDS ORDERED: Ondansetron PF 4 MG/2 ML Vial IVP PRN (16:02)
[2024-12-21] MEDS ORDERED: Acetaminophen 325 MG TAB PO PRN (16:02)
[2024-12-21 18:00] VITALS: BMI 23.0
[2024-12-21] MEDS: Pantoprazole 40 MG VIAL IVP SCH (21:06)
[2024-12-21] MEDS: Melatonin 3 MG TAB PO PRN (21:06)
[2024-12-22 04:29] LABS: #Basophils 0.04 10x3/uL (0.0-0.2); #Eosinophils 0.44 10x3/uL (0.0-0.7); #Monocytes 0.38 10x3/uL (0.11-0.59); #Neutrophils 3.23 10x3/uL (1.40-6.50); %Basophils 0.8 % (0.0-1.0); %Eosinophils 8.6 % (0.0-10.0); %Lymphocytes 19.9 % (21.0-51.0); %Monocytes 7.4 % (0.0-10.0); %Neutrophils 63.1 % (42.0-75.0); Hematocrit 27.5 % (42.0-52.0); Hemoglobin 8.9 g/dL (14.0-18.0); Mean Corpuscular Hemoglobin 30.8 pg (27.0-31.0); Mean Corpuscular Volume 95.2 fL (78.0-98.0); Platelet Count 159 10x3/uL (130-400); Red Blood Cell (RBC) Count 2.89 mill/uL (4.70-6.10); White Blood Cell (WBC) Count 5.12 10x3/uL (4.8-10.8)
[2024-12-22 04:48] LABS: Anion Gap 10 mmol/L (10-20); BUN (Urea Nitrogen) 20 mg/dL (8.4-25.7); Calc. Creatinine Clearance 34 mL/min (70-130); Calcium 8.8 mg/dL (7.8-10.44); Carbon Dioxide 23 mmol/L (23-31); Chloride 107 mmol/L (98-107); Glucose 97 mg/dL (83-110); Potassium 4.1 mmol/L (3.5-5.1); Sodium 136 mmol/L (136-145)
[2024-12-22 08:16] LABS: Cardiac Risk 3.1 (Less than 4.5); Cholesterol 117.0 mg/dl (< 200 Desired); HDL Cholesterol 38.0 mg/dL (>60 Neg Risk); LDL Cholesterol, Calculated 60.0 mg/dL; Triglycerides 95.0 mg/dL (Less than 150)
[2024-12-22] MEDS: Folic Acid 1 MG TAB PO SCH (08:55)
[2024-12-22] MEDS: Apixaban 5 MG TAB PO SCH (08:55)
[2024-12-22] MEDS: Allopurinol 100 MG TAB PO SCH (08:55)
[2024-12-22] MEDS: Aspirin 81 mg Enteric Coated Tablet PO SCH (08:55)
[2024-12-22] MEDS: Pantoprazole 40 MG DR.TAB PO SCH (08:55)
[2024-12-22] MEDS: Lisinopril 20 MG TAB PO SCH (09:00)
[2024-12-23] MEDS ORDERED: Lisinopril 10 MG TAB PO SCH (09:00)
[2024-12-24] MEDS: HYDROcodone/Acetaminophen 10/325 mg Tablet PO PRN (11:12)
[2024-12-26 04:10] LABS: Hematocrit 27.2 % (42.0-52.0); Hemoglobin 8.8 g/dL (14.0-18.0); Mean Corpuscular Hemoglobin 31.1 pg (27.0-31.0); Mean Corpuscular Volume 96.1 fL (78.0-98.0); Platelet Count 178 10x3/uL (130-400); Red Blood Cell (RBC) Count 2.83 mill/uL (4.70-6.10); White Blood Cell (WBC) Count 4.46 10x3/uL (4.8-10.8)
[2024-12-26 04:35] LABS: Anion Gap 12 mmol/L (10-20); BUN (Urea Nitrogen) 28 mg/dL (8.4-25.7); Calc. Creatinine Clearance 38 mL/min (70-130); Calcium 8.8 mg/dL (7.8-10.44); Carbon Dioxide 24 mmol/L (23-31); Chloride 107 mmol/L (98-107); Glucose 94 mg/dL (83-110); Potassium 4.6 mmol/L (3.5-5.1); Sodium 138 mmol/L (136-145)
[2024-12-26] MEDS ORDERED: Iopamidol 370 76% 100 ML VIAL ONE (10:44)
[2024-12-26 10:47] LABS: Iron 34 ug/dL (65-175); Iron Binding Capacity, Total 194 mcg/dL (261-462)
[2024-12-26] MEDS: Artificial Tear Ophth Sol 15 ML BOT EA EYE PRN (15:14)
[2024-12-27] MEDS: Ferrous Sulfate 325 MG TAB PO SCH (16:56)
[2024-12-28 11:35] VITALS: BP 108/67; TEMP 97.6
== END 2024-12-28 12:49 | disposition home or self-care (01) | DRG 149 ==
LOC: ERS 09:53 → 2SE 15:10 → OBSVTOIN 12-22 18:21
PROVIDERS: ADMIT Internal Medicine; ATTEND Hospitalist
DX: H81.13 Benign paroxysmal vertigo, bilateral (principal); I95.1 Orthostatic hypotension; R29.6 Repeated falls; K21.9 Gastro-esophageal reflux disease without esophagitis; G25.81 Restless legs syndrome; I48.0 Paroxysmal atrial fibrillation; M19.90 Unspecified osteoarthritis, unspecified site; M10.9 Gout, unspecified; N18.30 Chronic kidney disease, stage 3 unspecified; I12.9 Hypertensive chronic kidney disease with stage 1 through stage 4 chronic kidney disease, or unspecified chronic kidney disease; K59.00 Constipation, unspecified; Z96.653 Presence of artificial knee joint, bilateral; D63.1 Anemia in chronic kidney disease; D50.9 Iron deficiency anemia, unspecified; Z79.01 Long term (current) use of anticoagulants; Z98.890 Other specified postprocedural states; Z79.899 Other long term (current) drug therapy; Z85.46 Personal history of malignant neoplasm of prostate; Z97.4 Presence of external hearing-aid
CPT/HCPCS: 36415; 70450; 70496; 70498; 71045; 72125; 74177; 76014; 80048; 80053; 80061; 81001; 82274; 82728; 83036; 83540; 83550; 84484; 85025; 85027; 93005; 96361; 96374; 96375; 96376; G0378; J2405; J2470; J7120; J8610; Q9967